=== PATIENT | male | born 1960 | race Caucasian/White ===

== ENCOUNTER → 2021-11-25 10:15 | Outpatient (BNVA) | payer OTHER, SELFPAY | PROVIDERS: PCP Physician Assistant; Visit Provider Nurse Practitioner | DX: R26.89 Other abnormalities of gait and mobility (principal); R41.89 Other symptoms and signs involving cognitive functions and awareness | CPT/HCPCS: 82607; 82746; 83921; 84443; 85651; 86140; 86334; 99204 ==

== ENCOUNTER → 2022-05-12 14:07 | Outpatient (BNVA) | payer OTHER, SELFPAY | PROVIDERS: PCP Physician Assistant; Visit Provider Specialist | DX: G43.711 Chronic migraine without aura, intractable, with status migrainosus (principal); M48.02 Spinal stenosis, cervical region; R41.89 Other symptoms and signs involving cognitive functions and awareness; R26.9 Unspecified abnormalities of gait and mobility; Z87.891 Personal history of nicotine dependence | CPT/HCPCS: 99215 ==